=== PATIENT | female | born 1985 | race Two or more races ===

== ENCOUNTER 2018-11-27 20:19 | Emergency (ER) | payer MEDICAID ==
[~2018-11-27] VITALS: Ht 167.6 cm; Wt 113.4 kg
--- NOTE | 2018-11-27 21:27 | PHYS DOC ---
Adult General Chief Complaint Chief Complaint: CHEST PAIN HPI HPI Patient is a 33 year old with a anxiety presents with left arm pain radiating to chest. Symptom onset began earlier this morning. Patient also reports left lower paracervical/posterior or pain with trapezius tenderness on exam. Denies numbness or weakness in hand. Pain reproduces with palpation and shoulder movement. She feels as though she may have slept wrong. No nausea vomiting, sweats, shortness of breath or cough. No other acute symptoms or complaints. Patient does not take routine medications. Last menstrual period was 3 weeks ago. [] Review of Systems Review of Systems ROS as per HPI All other systems were reviewed and found to be within normal limits, except as documented in this note. Allergies Allergies Allergies Coded Allergies Type Severity Reaction Last Updated Verified No Known Drug Allergies 11/27/18 No Physical Exam Physical Exam Constitutional: Well developed, well nourished, no acute distress, non-toxic appearance. [] HENT: Normocephalic, atraumatic, bilateral external ears normal, oropharynx moist, no oral exudates, nose normal. [] Eyes: PERRLA, EOMI, conjunctiva normal, no discharge. [] Neck: Normal range of motion, no midline tenderness, supple, left lower paravertebral muscle TTP. Negative Homans signs. [] Cardiovascular:Heart rate regular rhythm, no murmur [] Lungs & Thorax: Bilateral breath sounds clear to auscultation, lungs clear. [] Abdomen: Bowel sounds normal, soft, no tenderness. [] Skin: Warm, dry. [] Back: No midline tenderness. Posterior shoulder trapezius muscle spasm, reproducing complaint.. Extremities: Left upper extremity no bruising, swelling, palpable cords or rash. Shoulder pain reproduces on exam with range of motion. [] Neurologic: Alert and oriented X 3, normal motor function, normal sensory function, no focal deficits noted. [] Psychologic: Affect normal, judgement normal, mood normal. [] Current Patient Data Vital Signs Vital Signs Date Time Temp Pulse Resp B/P (MAP) Pulse Ox O2 Delivery O2 Flow Rate FiO2 11/27/18 22:00 86 18 142/86 (104) 97 Room Air 11/27/18 20:25 98.3 98.3 Lab Values Laboratory Tests Test 11/27/18 20:55 POC Urine HCG, Qualitative Hcg negative (Negative) EKG EKG [EKG: Reviewed. ] Radiology/Procedures Radiology/Procedures [] Course & Med Decision Making Course & Med Decision Making Pertinent Labs and Imaging studies reviewed. (See chart for details) [Reproducible left shoulder/arm pain with trapezius muscle spasm tenderness to palpation. EKG reviewed. Recommend supportive care with PCP follow-up as needed. Return precautions reviewed. Patient verbalizes understanding agreement discharge instructions prior to departure.] Dragon Disclaimer Dragon Disclaimer This electronic medical record was generated, in whole or in part, using a voice recognition dictation system. Departure Departure Impression: Primary Impression: Cervical radicular pain Disposition: HOME, SELF-CARE Condition: GOOD Referrals: UNKNOWN PCP NAME (PCP) Patient Instructions: Cervical Radiculopathy, [id number] Additional Instructions: Please continue Tylenol and ibuprofen for pain and take Flexeril as needed for additional relief. Follow up with your PCP in 3-5 days if symptoms persist. Return to the ED if new or worsening symptoms. Scripts Cyclobenzaprine Hcl (CYCLOBENZAPRINE HCL) 10 Mg Tablet 1 TAB PO TID, #30 TAB Prov: BALWINDER GÓMEZ DO 11/27/18 BALWINDER GÓMEZ DO Nov 27, 2018 21:27
[2018-11-27] MEDS ORDERED: CYCL10TA2 PO (21:33)
[2018-11-27 22:00] VITALS: BP 142/86
--- NOTE | 2018-11-28 06:54 | EKG ---
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
== END 2018-11-27 22:07 | disposition home or self-care (01) ==
LOC: ER 20:19
DX: M54.12 Radiculopathy, cervical region (principal); R07.89 Other chest pain; M25.512 Pain in left shoulder; F41.9 Anxiety disorder, unspecified
CPT/HCPCS: 81025; 93005; 99284

== ENCOUNTER 2018-12-26 15:06 | Emergency (ER) | payer MEDICAID ==
[~2018-12-26] VITALS: Ht 167.6 cm; Wt 108.9 kg
[~2018-12-26 15:06] MED LIST: CYCL10TA2 PO
--- NOTE | 2018-12-26 16:43 | PHYS DOC ---
Past Medical History Past Medical History: Bipolar, Depression Past Surgical History: Tubal ligation, Other Additional Past Surgical Histo: RIGHT KNEE SX Smoking: Cigarettes, 1 Pack Per Day Alcohol Use: None Drug Use: None Adult General Chief Complaint Chief Complaint: SYNCOPE HPI HPI Patient is a 33 year old female who presents with a syncopal episode around 2:00 PM. The patient states that she blacked out for approximately 5 minutes. States it was witnessed by her boyfriend and children. She got outside to check the mail and says that when she was walking to the mailbox she passed out. Denies any postictal period. Not eaten at all today. Took 200 mg ibuprofen at [facility] for the pain which did not help. Rates her pain as 10 out of 10 in severity. Review of Systems Review of Systems Constitutional: Denies fever or chills [] Eyes: Denies change in visual acuity, redness, or eye pain [] HENT: Denies nasal congestion or sore throat [] Respiratory: Denies cough or shortness of breath [] Cardiovascular: No additional information not addressed in HPI [] GI: Reports nausea, Denies abdominal pain, vomiting, bloody stools or diarrhea [] : Denies dysuria or hematuria [] Musculoskeletal: Denies back pain. Reports Right knee, and left ankle pain. Integument: Denies rash or skin lesions [] Neurologic: Denies headache, focal weakness or sensory changes [] Endocrine: Denies polyuria or polydipsia [] Complete systems were reviewed and found to be within normal limits, except as documented in this note. Current Medications Current Medications Current Medications Medications (Trade) Dose Ordered Sig/Ahsan Start Time Stop Time Status Last Admin Dose Admin Ketorolac Tromethamine (Toradol 15mg Vial) 15 mg 1X ONCE 12/26/18 20:00 12/26/18 20:01 Ondansetron HCl (Zofran) 4 mg 1X ONCE 12/26/18 17:00 12/26/18 17:01 DC 12/26/18 17:00 4 MG Sodium Chloride 1,000 ml @ 1,000 mls/hr 1X ONCE 12/26/18 17:00 12/26/18 17:59 DC 12/26/18 17:00 1,000 MLS/HR Allergies Allergies Allergies Coded Allergies Type Severity Reaction Last Updated Verified No Known Drug Allergies 11/27/18 No Physical Exam Physical Exam Constitutional: Well developed, well nourished, no acute distress, non-toxic appearance. [] HENT: Normocephalic, atraumatic, bilateral external ears normal, oropharynx moist, no oral exudates, nose normal. [] Eyes: PERRLA, EOMI, conjunctiva normal, no discharge. [] Neck: Normal range of motion, no tenderness, supple, no stridor. [] Cardiovascular:Heart rate regular rhythm, no murmur [] Lungs & Thorax: Bilateral breath sounds clear to auscultation [] Abdomen: Bowel sounds normal, soft, no tenderness, no masses, no pulsatile masses. [] Skin: Warm, dry, no erythema, no rash. [] Back: No tenderness, no CVA tenderness. [] Extremities:, Tenderness to R knee, and L ankle, no edema, ROM is reduced. Neurologic: Alert and oriented X 3, normal motor function, normal sensory func tion, no focal deficits noted. [] Psychologic: Affect normal, judgement normal, mood normal. [] Current Patient Data Lab Values Laboratory Tests Test 12/26/18 16:49 12/26/18 18:20 12/26/18 18:22 White Blood Count 9.4 x10^3/uL (4.0-11.0) Red Blood Count 4.65 x10^6/uL (3.50-5.40) Hemoglobin 14.3 g/dL (12.0-15.5) Hematocrit 42.2 % (36.0-47.0) Mean Corpuscular Volume 91 fL (79-100) Mean Corpuscular Hemoglobin 31 pg (25-35) Mean Corpuscular Hemoglobin Concent 34 g/dL (31-37) Red Cell Distribution Width 14.1 % (11.5-14.5) Platelet Count 247 x10^3/uL (140-400) Neutrophils (%) (Auto) 67 % (31-73) Lymphocytes (%) (Auto) 21 % (24-48) L Monocytes (%) (Auto) 8 % (0-9) Eosinophils (%) (Auto) 4 % (0-3) H Basophils (%) (Auto) 1 % (0-3) Neutrophils # (Auto) 6.3 x10^3uL (1.8-7.7) Lymphocytes # (Auto) 2.0 x10^3/uL (1.0-4.8) Monocytes # (Auto) 0.7 x10^3/uL (0.0-1.1) Eosinophils # (Auto) 0.3 x10^3/uL (0.0-0.7) Basophils # (Auto) 0.1 x10^3/uL (0.0-0.2) Sodium Level 139 mmol/L (136-145) Potassium Level 3.7 mmol/L (3.5-5.1) Chloride Level 102 mmol/L (98-107) Carbon Dioxide Level 25 mmol/L (21-32) Anion Gap 12 (6-14) Blood Urea Nitrogen 9 mg/dL (7-20) Creatinine 0.8 mg/dL (0.6-1.0) Estimated GFR (Cockcroft-Gault) 83.7 BUN/Creatinine Ratio 11 (6-20) Glucose Level 95 mg/dL (70-99) Calcium Level 9.0 mg/dL (8.5-10.1) Total Bilirubin 0.3 mg/dL (0.2-1.0) Aspartate Amino Transferase (AST) 12 U/L (15-37) L Alanine Aminotransferase (ALT) 18 U/L (14-59) Alkaline Phosphatase 89 U/L (46-116) Troponin I Quantitative < 0.017 ng/mL (0.000-0.055) Total Protein 7.7 g/dL (6.4-8.2) Albumin 3.9 g/dL (3.4-5.0) Albumin/Globulin Ratio 1.0 (1.0-1.7) Urine Collection Type Unknown Urine Color Yellow Urine Clarity Clear Urine pH 5.5 Urine Specific [place] 1.010 Urine Protein Negative mg/dL (NEG-TRACE) Urine Glucose (UA) Negative mg/dL (NEG) Urine Ketones (Stick) 15 mg/dL (NEG) Urine Blood Large (NEG) Urine Nitrite Negative (NEG) Urine Bilirubin Negative (NEG) Urine Urobilinogen Dipstick 0.2 mg/dL (0.2 mg/dL) Urine Leukocyte Esterase Negative (NEG) Urine RBC 20-40 /HPF (0-2) Urine WBC 0 /HPF (0-4) Urine Squamous Epithelial Cells Few /LPF Urine Bacteria 0 /HPF (0-FEW) POC Urine HCG, Qualitative Hcg negative (Negative) Laboratory Tests 12/26/18 16:49 Laboratory Tests 12/26/18 16:49 EKG EKG EKG interpreted by Dr. Beckman Sinus with rate of 81, No STEMI, No acute changes compared to old ekg in November of 2018.[] Radiology/Procedures Radiology/Procedures Chest x-ray, knee, and ankle interpreted by Dr. Bryant, No acute obvious abnormality.[] Course & Med Decision Making Course & Med Decision Making Pertinent Labs and Imaging studies reviewed. (See chart for details) Patient has a history of seizures but from her description it is unlikely to be a seizure. She is being worked up by neurology for seizures however did not urinate on her self and no postictal period. Had no symptoms during syncopal episode per boyfriend that seemed to look like Grand Mal seizure. Patient had not eaten at all today. Will get EKG, labs, chest x-ray and give fluids. Labs are unremarkable. Chest x-ray is negative. Will d/c home. Dragon Disclaimer Dragon Disclaimer This electronic medical record was generated, in whole or in part, using a voice recognition dictation system. Departure Departure Impression: Primary Impression: Syncope Disposition: 01 HOME, SELF-CARE Condition: STABLE Referrals: UNKNOWN PCP NAME (PCP) Patient Instructions: Syncope Additional Instructions: Thank you for visiting [facility]. We appreciate you trusting us with your care. If any additional problems come up don't hesitate to [facility]. Please follow up with your primary care provider so they can plan additional care if needed and know about the problem that you had. If symptoms worsen come back to the Emergency Department. Any concerning symptoms that start such as chest pain, shortness of Air, weakness or numbness on one side of the body, running high fevers or any other concerning symptoms return to the ER. Please follow up with your neurologist and primary care doctor regarding these symptoms. Problem Qualifiers Primary Impression: Syncope Syncope type: unspecified Qualified Codes: R55 - Syncope and collapse ABNER RICO APRN Dec 26, 2018 16:43
[2018-12-26 16:59] LABS: BASO # 0.1 x10^3/uL (0.0-0.2); BASO % 1 % (0-3); EOS # 0.3 x10^3/uL (0.0-0.7); EOS % 4 % (0-3); HEMATOCRIT 42.2 % (36.0-47.0); HEMOGLOBIN 14.3 g/dL (12.0-15.5); LYMPH % 21 % (24-48); MEAN CORPUSCULAR HEMOGLOBIN 31 pg (25-35); MEAN CORPUSCULAR HGB CONC 34 g/dL (31-37); MEAN CORPUSCULAR VOLUME 91 fL (79-100); MONO # 0.7 x10^3/uL (0.0-1.1); MONO % 8 % (0-9); NEUT # 6.3 x10^3uL (1.8-7.7); NEUT % 67 % (31-73); PLATELET COUNT 247 x10^3/uL (140-400); RED BLOOD COUNT 4.65 x10^6/uL (3.50-5.40); RED CELL DISTRIBUTION WIDTH 14.1 % (11.5-14.5); WHITE BLOOD COUNT 9.4 x10^3/uL (4.0-11.0)
[2018-12-26] MEDS ORDERED: IV NORMAL SALINE 1000ML BAG 1,000 ML IV ONE (17:00)
[2018-12-26] MEDS ORDERED: ONDANSETRON PF 4 MG/2 ML VIAL. IV ONE (17:00)
[2018-12-26 17:14] LABS: CREATININE 0.8 mg/dL (0.6-1.0); GFR 83.7; POTASSIUM 3.7 mmol/L (3.5-5.1)
[2018-12-26 17:20] LABS: ALBUMIN 3.9 g/dL (3.4-5.0); TOTAL BILIRUBIN 0.3 mg/dL (0.2-1.0); TOTAL PROTEIN 7.7 g/dL (6.4-8.2)
--- NOTE | 2018-12-26 18:25 | EKG ---
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
[2018-12-26 18:29] LABS: BILIRUBIN,URINE NEGATIVE (NEG); CLARITY,URINE CLEAR; COLOR,URINE YELLOW; NITRITE,URINE NEGATIVE (NEG); PH,URINE 5.5; PROTEIN,URINE NEGATIVE (NEG-TRACE); UROBILINOGEN,URINE 0.2 mg/dL (0.2 mg/dL)
[2018-12-26 18:38] LABS: SQUAMOUS EPITHELIAL CELL,UR FEW /LPF
[2018-12-26 18:40] LABS: BACTERIA,URINE 0 /HPF (0-FEW); RBC,URINE 20-40 /HPF (0-2); WBC,URINE 0 /HPF (0-4)
[2018-12-26 19:00] VITALS: BP 115/61
[2018-12-26] MEDS ORDERED: KETOROLAC 15 MG/ML VIAL. IV ONE (20:00)
--- NOTE | 2018-12-26 21:59 | RAD ---
Three-view right knee radiographs 12/26/2018 CLINICAL HISTORY: Right knee pain post fall. PA, lateral and oblique digital radiographs of the right knee were obtained. No fracture or dislocation of the right knee is seen. Mild degenerative changes are seen involving all 3 compartments of the right knee. There is no radiographic evidence of joint effusion. IMPRESSION: No fracture or dislocation of the right knee is seen. Electronically signed by: Cj Broussard MD (12/26/2018 9:56 PM) [facility]
--- NOTE | 2018-12-26 22:01 | RAD ---
Three-view left ankle radiographs 12/26/2018 CLINICAL HISTORY: Fall with injury to the left ankle. PA, lateral and oblique digital radiographs of the left ankle were obtained. The left ankle mortise is intact. No fracture or dislocation of the left ankle is seen. IMPRESSION: No fracture or dislocation of the left ankle is seen. Electronically signed by: Cj Broussard MD (12/26/2018 9:58 PM) [facility]
--- NOTE | 2018-12-26 22:06 | RAD ---
PA and lateral chest radiographs 12/26/2018 CLINICAL HISTORY: Syncope. PA and lateral digital radiographs of the chest were obtained. No previous studies are available for comparison. The cardiac and mediastinal silhouettes are within normal limits size and configuration. No acute pulmonary infiltrate is seen. No pleural effusion or pneumothorax is seen. The osseous structures are grossly intact. IMPRESSION: No acute abnormality is seen. Electronically signed by: Cj Broussard MD (12/26/2018 10:03 PM) [facility]
== END 2018-12-26 19:30 | disposition home or self-care (01) ==
LOC: ER 15:06
DX: S99.912A Unspecified injury of left ankle, initial encounter (principal); M25.561 Pain in right knee; R55 Syncope and collapse; F31.9 Bipolar disorder, unspecified; Z98.51 Tubal ligation status; F17.210 Nicotine dependence, cigarettes, uncomplicated; W18.39XA Other fall on same level, initial encounter; Y93.01 Activity, walking, marching and hiking; Y92.89 Other specified places as the place of occurrence of the external cause; Y99.8 Other external cause status
CPT/HCPCS: 36415; 71046; 73562; 73610; 80053; 81001; 81025; 84484; 85025; 93005; 96361; 96374; 99285; J2405; J7030

== ENCOUNTER 2019-02-21 19:02 | Emergency (ER) | payer MEDICAID ==
[~2019-02-21] VITALS: Ht 167.6 cm; Wt 104.3 kg
[2019-02-21 20:00] VITALS: BP 141/82
[2019-02-21] MEDS ORDERED: PRED50TA PO (21:52)
--- NOTE | 2019-02-21 21:53 | PHYS DOC ---
Past Medical History Past Medical History: Asthma, Bipolar, Depression Past Surgical History: Tubal ligation, Other Additional Past Surgical Histo: RIGHT KNEE SX Alcohol Use: None Drug Use: None Adult General Chief Complaint Chief Complaint: ASTHMA HPI HPI Patient is a 33 year old female, accompanied by her significant other, with complaints of problems with her asthma that started today. Patient states she has had nasal congestion and a dry cough for the last several days. She denies any pain at this time. Review of Systems Review of Systems Constitutional: Denies fever or chills [] Eyes: Denies change in visual acuity, redness, or eye pain [] HENT: Denies sore throat, reports nasal congestion, postnasal drainage, and ear fullness for over a week. Respiratory: Reports wheezing, dry cough, and shortness of breath that started today. Cardiovascular: No additional information not addressed in HPI [] GI: Denies abdominal pain, nausea, vomiting, or diarrhea [] : Denies dysuria or hematuria [] Musculoskeletal: Denies back pain or joint pain [] Integument: Denies rash or skin lesions [] Neurologic: Denies headache, focal weakness or sensory changes [] Complete systems were reviewed and found to be within normal limits, except as documented in this note. Allergies Allergies Allergies Coded Allergies Type Severity Reaction Last Updated Verified No Known Drug Allergies 11/27/18 No Physical Exam Physical Exam Constitutional: Well developed, well nourished, no acute distress, non-toxic appearance. [] HENT: Normocephalic, atraumatic, bilateral external ears normal, bilateral TMs are normal, posterior pharynx has cobblestone appearance, oropharynx moist, no oral exudates, nasal turbinates are edematous and erythematous bilaterally Eyes: PERRLA, EOMI, conjunctiva normal, no discharge. [] Neck: Normal range of motion, no tenderness, supple, no stridor. [] Cardiovascular:Heart rate regular rhythm, no murmur [] Lungs & Thorax: Bilateral breath sounds clear to auscultation, no wheezing, no retractions [] Skin: Warm, dry, no erythema, no rash. [] ] Extremities: No cyanosis, no clubbing, ROM intact, no edema. [] Neurologic: Alert and oriented X 3, no focal deficits noted. [] Psychologic: Affect normal, judgement normal, mood normal. [] Current Patient Data Vital Signs Vital Signs Date Time Temp Pulse Resp B/P (MAP) Pulse Ox O2 Delivery O2 Flow Rate FiO2 02/21/19 20:00 98.0 85 20 141/82 (101) 99 Room Air 98.0 EKG EKG [] Radiology/Procedures Radiology/Procedures [] Course & Med Decision Making Course & Med Decision Making Pertinent Labs and Imaging studies reviewed. (See chart for details) [] Dragon Disclaimer Dragon Disclaimer This electronic medical record was generated, in whole or in part, using a voice recognition dictation system. Departure Departure Impression: Primary Impression: Allergic rhinitis Additional Impression: Allergic cough Disposition: HOME, SELF-CARE Condition: STABLE Referrals: UNKNOWN PCP NAME (PCP) Patient Instructions: Allergic Rhinitis Additional Instructions: Fill prescription(s) and use as directed. Recommend that you take take an wmxx-nve-wwalsfp antihistamine such as Zyrtec or Claritin every day at bedtime, also take pvhx-[id number] Flonase nasal spray, 2 sprays each side of the nose once daily in the morning. Tylenol or ibuprofen prn pain/fever. Increase clear fluids. Avoid triggers such as smoke, fragrance, dust, and pollen. May take OTC cough suppressants as needed. Follow-up with your primary care doctor as needed. Scripts Prednisone (PREDNISONE) 50 Mg Tablet 1 TAB PO DAILY, #5 TAB 0 Refills Prov: LINUS CLEMENTE APRN 02/21/19 Problem Qualifiers Primary Impression: Allergic rhinitis Allergic rhinitis trigger: unspecified Allergic rhinitis seasonality: unspecified Qualified Codes: J30.9 - Allergic rhinitis, unspecified LINUS CLEMENTE ZINC PLATE CUTTER Feb 21, 2019 21:52
== END 2019-02-21 21:57 | disposition home or self-care (01) ==
LOC: ER 19:02
DX: J45.901 Unspecified asthma with (acute) exacerbation (principal); F31.9 Bipolar disorder, unspecified; Z98.51 Tubal ligation status
CPT/HCPCS: 99283

== ENCOUNTER 2019-04-11 15:56 | Emergency (ER) | payer MEDICAID ==
[~2019-04-11] VITALS: Ht 167.6 cm; Wt 105.7 kg
[~2019-04-11 15:56] MED LIST changes: +PRED50TA PO
--- NOTE | 2019-04-11 16:41 | PHYS DOC ---
Past Medical History Past Medical History: Asthma, Bipolar, Depression Past Surgical History: Tubal ligation, Other Additional Past Surgical Histo: RIGHT KNEE SX Alcohol Use: None Drug Use: None Adult General Chief Complaint Chief Complaint: KNEE INJURY HPI HPI Patient is a 34 year old female who presents with patient states yesterday she was going up her wooden stairs in her house when she felt the stairs landing on both of her knees. Patient states both her knees hurt but her right knee hurts worse to her left knee. There is no swelling in her knees bilaterally. Patient is able to ambulate with a steady gait. Patient rates her pain an 8 out of 10. Review of Systems Review of Systems Musculoskeletal: Denies back pain. Right and left joint pain [] All other systems were reviewed and found to be within normal limits, except as documented in this note. Allergies Allergies Allergies Coded Allergies Type Severity Reaction Last Updated Verified No Known Drug Allergies 11/27/18 No Physical Exam Physical Exam Constitutional: Well developed, well nourished, no acute distress, non-toxic appearance. [] Skin: Warm, dry, no erythema, no rash. [] Extremities: Right lateral, medial, and posterior knee tenderness, no cyanosis, no clubbing, ROM intact, no edema. [] Neurologic: Alert and oriented X 3, normal motor function, normal sensory function, no focal deficits noted. [] Psychologic: Affect normal, judgement normal, mood normal. [] Current Patient Data Vital Signs Vital Signs Date Time Temp Pulse Resp B/P (MAP) Pulse Ox O2 Delivery O2 Flow Rate FiO2 04/11/19 16:46 98.7 77 16 133/70 (91) 100 Room Air 98.7 EKG EKG [] Radiology/Procedures Radiology/Procedures [] Impressions: [facility] [address] [place] [address] IMAGING REPORT Signed PATIENT: DEEP AYALAACCOUNT: [id number] : 1985 LOCATION: ER AGE: 34 SEX: F EXAM STATUS: REG ER ORD. PHYSICIAN: FRANCISCO DE LA TORRE APRN REASON: chronic bilateral knee pain. hx of right knee surgery in 2007 PROCEDURE: KNEE BILAT 4V KNEE BILAT 4V History: Chronic bilateral knee pain, previous right knee surgery Comparison: December 26, 2018 right knee radiographs Findings: Total of 8 views of bilateral knees are submitted. There are postsurgical changes of the right knee. There is mild narrowing of the lateral compartment joint space of the right knee and the medial compartment joint space of the left knee. No acute fracture or dislocation is identified. Impression: 1. There is minimal osteoarthritic change, no acute fracture identified of either knee. Electronically signed by: Alejandro Ornelas MD (04/11/2019 5:32 PM) [id number] DICTATED and SIGNED BY: ALEJANDRO ORNELAS MD DATE: 04/11/19 173 Course & Med Decision Making Course & Med Decision Making Patient states her right knee hurts worse than left knee. She states it is a sharp and burning type of pain. Patient drove herself here. Patient has tenderness to the lateral, medial and back of the knee with palpation. There is no laxity in the joint. Patient can bend and extend the leg without, the patient but she states it is painful. Denies any numbness or tingling. There is no swelling in the knee or the extremity. Popliteal pulses present. Skin is pink warm and dry. Cap refill is less than 3 seconds. She states she's had previous surgery on the right knee but she just moved here from [place] she does not have a doctor to follow-up with. Summary of bilateral knee shows no acute findings. I will refer her to Dr. Eduardo if she needs to follow up. Dragon Disclaimer Jignesh Disclaimer This electronic medical record was generated, in whole or in part, using a voice recognition dictation system. Departure Departure Impression: Primary Impression: Knee pain Additional Impression: Fall Disposition: HOME, SELF-CARE Condition: STABLE Referrals: UNKNOWN PCP NAME (PCP) NATHALIA EDUARDO MD Patient Instructions: Knee Pain Additional Instructions: Follow-up with primary care doctor or I will refer you to a orthopedic doctor if not feeling better. Scripts Ibuprofen (IBUPROFEN) 600 Mg Tablet 600 MG PO PRN Q6HRS PRN for INFLAMMATION, #20 TAB Prov: FRANCISCO DE LA TORRE SPEECH CORRECTION ASSISTANT 04/11/19 Problem Qualifiers Primary Impression: Knee pain Chronicity: acute Laterality: bilateral Qualified Codes: M25.561 - Pain in right knee; M25.562 - Pain in left knee Additional Impression: Fall Encounter type: initial encounter Qualified Codes: W19.XXXA - Unspecified fall, initial encounter FRANCISCO DE LA TORRE SPEECH CORRECTION ASSISTANT Apr 11, 2019 16:41
[2019-04-11 16:46] VITALS: BP 133/70
--- NOTE | 2019-04-11 17:36 | RAD ---
KNEE BILAT 4V History: Chronic bilateral knee pain, previous right knee surgery Comparison: December 26, 2018 right knee radiographs Findings: Total of 8 views of bilateral knees are submitted. There are postsurgical changes of the right knee. There is mild narrowing of the lateral compartment joint space of the right knee and the medial compartment joint space of the left knee. No acute fracture or dislocation is identified. Impression: 1. There is minimal osteoarthritic change, no acute fracture identified of either knee. Electronically signed by: Rufino Corona MD (04/11/2019 5:32 PM) [id number]
[2019-04-11] MEDS ORDERED: IBUP-1007 PO (17:40)
== END 2019-04-11 17:56 | disposition home or self-care (01) ==
LOC: ER 15:56
DX: M25.561 Pain in right knee (principal); M25.562 Pain in left knee; J45.909 Unspecified asthma, uncomplicated; F31.9 Bipolar disorder, unspecified; Z98.51 Tubal ligation status; W10.8XXA Fall (on) (from) other stairs and steps, initial encounter; Y93.89 Activity, other specified; Y92.89 Other specified places as the place of occurrence of the external cause; Y99.8 Other external cause status
CPT/HCPCS: 73564; 99284

== ENCOUNTER 2019-07-08 23:00 | Emergency (ER) | payer MEDICAID ==
[~2019-07-08 23:00] MED LIST changes: +IBUP-1007 PO
--- NOTE | 2019-07-08 23:35 | PHYS DOC ---
Past Medical History Past Medical History: Asthma, Bipolar, Depression Past Surgical History: Tubal ligation, Other Additional Past Surgical Histo: RIGHT KNEE SX Alcohol Use: None Drug Use: None Adult General Chief Complaint Chief Complaint: FLU SYMPTOM HPI HPI Patient is a 34 year old female with history of asthma who presents to the ED today complaining of cough, body aches, chills, generalized weakness, symptoms began this morning. Review of Systems Review of Systems Constitutional: Reports body aches, generalized weakness, denies fever Eyes: Denies change in visual acuity, redness, or eye pain [] HENT: Denies nasal congestion or sore throat [] Respiratory: Reports cough, denies shortness of breath [] Cardiovascular: No additional information not addressed in HPI [] GI: Denies abdominal pain, nausea, vomiting, bloody stools or diarrhea [] : Denies dysuria or hematuria [] Musculoskeletal: Denies back pain or joint pain [] Integument: Denies rash or skin lesions [] Neurologic: Denies headache, focal weakness or sensory changes [] All other systems were reviewed and found to be within normal limits, except as documented in this note. Current Medications Current Medications Current Medications Medications (Trade) Dose Ordered Sig/Ahsan Start Time Stop Time Status Last Admin Dose Admin Albuterol/ Ipratropium (Duoneb) 3 ml 1X ONCE 07/08/19 23:45 07/08/19 23:46 DC 07/08/19 23:53 3 ML Prednisone (Prednisone) 50 mg 1X ONCE 07/08/19 23:45 07/08/19 23:46 DC 07/08/19 23:50 50 MG Allergies Allergies Allergies Coded Allergies Type Severity Reaction Last Updated Verified No Known Drug Allergies 11/27/18 No Physical Exam Physical Exam Constitutional: Well developed, well nourished, no acute distress, non-toxic appearance. [] HENT: Normocephalic, atraumatic, bilateral external ears normal, oropharynx moist, no oral exudates, nose normal. [] Eyes: PERRLA, EOMI, conjunctiva normal, no discharge. [] Neck: Normal range of motion, no tenderness, supple, no stridor. [] Cardiovascular:Heart rate regular rhythm, no murmur [] Lungs & Thorax: Bilateral breath sounds clear to auscultation [] Abdomen: Bowel sounds normal, soft, no tenderness, no masses, no pulsatile masses. [] Skin: Warm, dry, no erythema, no rash. [] Back: No tenderness, no CVA tenderness. [] Extremities: No tenderness, no cyanosis, no clubbing, ROM intact, no edema. [] Neurologic: Alert and oriented X 3, normal motor function, normal sensory function, no focal deficits noted. [] Psychologic: Affect normal, judgement normal, mood normal. [] Current Patient Data Vital Signs Vital Signs Date Time Temp Pulse Resp B/P (MAP) Pulse Ox O2 Delivery O2 Flow Rate FiO2 07/08/19 23:54 99 Room Air 07/08/19 23:05 98.8 99 12 142/84 (103) 98.8 Lab Values Laboratory Tests Test 07/08/19 23:27 Influenza Type A Antigen Negative (NEGATIVE) Influenza Type B Antigen Positive (NEGATIVE) EKG EKG [] Radiology/Procedures Radiology/Procedures [] Course & Med Decision Making Course & Med Decision Making Pertinent Labs and Imaging studies reviewed. (See chart for details) This is a 34-year-old female patient presenting to the ED today with generalized weakness, cough, body aches and chills, symptoms began this morning. Positive for influenza B. Patient was discharged to home with Tamiflu. He was evaluated in the emergency room complaining of influenza B. We sent you home with antibiotics, ensure you complete them. Follow-up with your own doctor in the course of this week or next week. Please take Tylenol Motrin for pain or fever. Dragon Disclaimer Dragon Disclaimer This electronic medical record was generated, in whole or in part, using a voice recognition dictation system. Departure Departure Impression: Primary Impression: Influenza B Disposition: 01 HOME, SELF-CARE Condition: STABLE Referrals: UNKNOWN PCP NAME (PCP) follow up with your doctor in 1-2 weeks Patient Instructions: Influenza, Adult Additional Instructions: You were evaluated in the emergency room and tested positive for Influenza B. Please take Tamiflu until completed. Take Tylenol or Motrin for pain or fever. Rest, push fluids. Follow-up with your doctor in 1-2 weeks Scripts Oseltamivir Phosphate (TAMIFLU) 75 Mg Capsule 1 CAP PO BID, #10 CAP Prov: MADHU BROWN APRN 07/09/19 MADHU BROWN APRN Jul 08, 2019 23:35
[2019-07-08] MEDS ORDERED: predniSONE 10 MG TABLET PO ONE (23:45)
[2019-07-08] MEDS ORDERED: IPRATRPIUM/ALBUTEROL 0.5/2.5MG 3 ML NEBU. NEB ONE (23:45)
[2019-07-08 23:56] LABS: INFLUENZA A PATIENT NEGATIVE (NEGATIVE)
[2019-07-08 23:57] LABS: INFLUENZA B PATIENT POSITIVE (NEGATIVE)
[2019-07-09] MEDS ORDERED: OSEL75CA PO (00:17)
== END 2019-07-09 00:22 | disposition home or self-care (01) ==
LOC: ER 23:00
DX: J10.1 Influenza due to other identified influenza virus with other respiratory manifestations (principal); J45.909 Unspecified asthma, uncomplicated; F31.9 Bipolar disorder, unspecified
CPT/HCPCS: 87804; 94640; 99284; J7512; J7620